=== PATIENT | male | born 1970 | race Caucasian/White ===

== ENCOUNTER 2018-07-31 14:31 | Inpatient (IN) | payer OTHER ==
[~2018-07-31] VITALS: Ht 190.5 cm; Wt 248.2 kg
[2018-07-31] MEDS ORDERED: ROSU10TA5 PO (14:56)
[2018-07-31] MEDS ORDERED: DULO1CAP2 PO (14:56)
[2018-07-31] MEDS ORDERED: OLME40TA PO (14:56)
[2018-07-31] MEDS ORDERED: OMEP20CA3 PO (14:56)
[2018-07-31] MEDS ORDERED: LEVO150T7 PO (14:56)
[2018-07-31] MEDS ORDERED: HYDR12.55 PO (14:56)
[2018-07-31] MEDS ORDERED: BYST10TA2 PO (14:56)
[2018-07-31] MEDS ORDERED: DULO1CAP3 PO (14:56)
[2018-07-31] MEDS ORDERED: IPRATROPIUM 0.5MG/ALBUTEROL 2.5MG INH SOL UD 3ML (DUONEB)(J7620) NEB ONE (15:15)
[2018-07-31 15:37] LABS: ABG BASE EXCESS 2.3 (-2.0-2.0); ABG HCO3 27.5 MEQ/L (22.0-26.0); ABG O2 SATURATION 89.1 % (95.0-99.0); ABG PARTIAL PRESSURE CO2 44.6 mmHg (35.0-45.0); ABG PARTIAL PRESSURE O2 56.5 mmHg (75.0-100.0); ABG STANDARD HCO3 26.3 MEQ/L (22.0-26.0); ABG TOTAL CO2 28.9 MEQ/L (22.0-29.0); ABG pH (ARTERIAL) 7.408 UNITS (7.350-7.450)
[2018-07-31 16:04] LABS: BASO % 0.1 % (0.0-1.0); HEMATOCRIT 47.4 % (42.0-52.0); HEMOGLOBIN 14.7 g/dl (13.5-17.5); LYMPH # 0.7 10^3/uL (1.5-4.5); LYMPH % 7.2 % (24.0-44.0); MEAN CORPUSCULAR HEMOGLOBIN 26.3 pg (27.0-33.0); MEAN CORPUSCULAR VOLUME 84.9 fl (80.0-96.0); MONO # 0.7 10^3/uL (0.0-0.8); MONO % 6.6 % (0.0-5.0); NEUTROPHILS # 8.4 10^3/uL (1.8-7.7); NEUTROPHILS % 85.9 % (36.0-66.0); PLATELET COUNT, AUTOMATED 225 10^3/uL (150-450); RED BLOOD COUNT 5.58 10^6/uL (4.30-6.10); WHITE BLOOD COUNT 9.8 10^3/uL (4.0-10.0)
[2018-07-31 16:09] LABS: INFLUENZA A AMPLIFICATION POSITIVE (NEGATIVE); INFLUENZA B AMPLIFICATION NEGATIVE (NEGATIVE)
[2018-07-31] MEDS ORDERED: OSELTAMIVIR PHOSPHATE 75 MG CAP (TAMIFLU) PO ONE (16:30)
[2018-07-31 16:39] LABS: BLOOD UREA NITROGEN 11 MG/DL (7-18); CALCIUM LEVEL 7.9 MG/DL (8.5-10.1); CARBON DIOXIDE LEVEL 32 MEQ/L (21-32); CHLORIDE LEVEL 104 MEQ/L (98-107); CPK CREATINE PHOSPHOKINASE 162 U/L (39-308); CREATININE FOR GFR 1.08 MG/DL (0.70-1.30); GLOMERULAR FILTRATION RATE > 60.0 (>60); GLUCOSE, FASTING 110 MG/DL (70-100); SODIUM LEVEL 142 MEQ/L (136-145); TROPONIN I 0.07 NG/ML (< 0.10)
[2018-07-31] MEDS ORDERED: VITA200015 PO (17:01)
[2018-07-31] MEDS ORDERED: ADVI200T PO (17:01)
[2018-07-31] MEDS ORDERED: VITMTA PO (17:01)
[2018-07-31] MEDS ORDERED: FUROSEMIDE 40 MG/4 ML VIAL (J1940) IV ONE (18:00)
[2018-07-31] MEDS ORDERED: ACETAMINOPHEN TAB 650MG DOSE (2X325MG) PO PRN (18:15)
[2018-07-31] MEDS ORDERED: ONDANSETRON 4MG/2ML VIAL (J2405) IV PRN (18:15)
[2018-07-31] MEDS ORDERED: IPRATROPIUM 0.5MG/ALBUTEROL 2.5MG INH SOL UD 3ML (DUONEB)(J7620) NEB PRN (18:15)
[2018-07-31] MEDS ORDERED: AZITHROMYCIN 250 MG TAB PO ONE (18:30)
[2018-07-31] MEDS: FORMOTEROL FUMARATE 20 MCG/2 ML INHALATION SOLUTION (PERFOROMIST) INH SCH (20:00)
--- NOTE | 2018-07-31 20:49 | HPE ---
DATE OF ADMISSION: 07/31/2018 PRIMARY CARE PROVIDER: Balaji Campbell CHIEF COMPLAINT: Shortness of breath, weakness, and chills. Patient was seen at [facility] and diagnosed with influenza and possible pneumonia. HISTORY OF PRESENT ILLNESS: Mr. Birmingham is a 47-year-old male who presented to the emergency department today from urgent care. He states that he started having symptoms on Sunday around noon. It started with cold chills and then extreme muscle weakness. He also developed sweats and rigors. He found that he was sweating profusely and had mild body aches; he went to bed but was quite restless overnight. He had been hanging out with a friend on Sunday and, on Sunday, got a call that the friend was sick. His started feeling ill as well at that time. This morning, they had decided to go to urgent care and he was diagnosed with influenza. He states that he has been wheezing and having diarrhea as well as a dry cough. He denies any sputum production. He also states that the last couple of days he has had a headache and two episodes of epistaxis. He denies any runny nose, sore throat, or chest pain. He has noted a little bit of leg swelling but also admits that he stopped his Lasix on his own about 3 or 4 weeks ago. He did not get his flu vaccine this year due to having an allergic reaction multiple times years ago. He has never had a pneumonia vaccine. He used to smoke but quit about 10 years ago. His sick contacts are both his and his friend that he was hanging out with. REVIEW OF SYSTEMS: Constitutional: Positive for subjective fevers and chills as well as rigors. Denies any recent trauma or weight changes. HEENT: Denies vision changes, double vision, runny nose, tinnitus, or sore throat. Positive for headache, epistaxis, and sinus pain. Cardiovascular: Denies chest pain or palpitations. Positive for orthopnea and some mild increase in leg swelling. He sleeps with three pillows at night but does not have paroxysmal nocturnal dyspnea. Respiratory: Positive for dry cough and shortness of breath. Denies any sputum production or hemoptysis. Positive for wheezes. Gastrointestinal (GI): Positive for diarrhea, but negative for abdominal pain, difficulty swallowing, nausea, vomiting, constipation, obstipation, hematemesis, hematochezia, melena, or tenesmus. Genitourinary: Denies any hesitancy, nocturia, polyuria, terminal dribbling, incontinence, or dysuria. Musculoskeletal: Positive for extreme weakness, but denies any crepitus, decreased range of motion, or stiffness. Integumentary: Denies any rashes, striae, lesions, or wounds. Neurologic: Denies any changes to sight/smell/hearing/taste, seizures, paresthesias, or numbness. Positive for headache. Psychiatric: Admits to a history of anxiety. Denies depression, paranoia, anhedonia, or episodes of addi. Endocrine: Positive for history of hypothyroidism, obesity. Denies any tremors, visual disturbances, changes to appetite, constipation, or dry skin. Denies polydipsia. Hematologic: Denies any anemia, purpura, petechiae. Lymphatic: Denies any new lumps or bumps anywhere. PAST MEDICAL HISTORY: 1. Anxiety. 2. Hypertension. 3. Hypothyroidism. 4. Gastroesophageal reflux disease (GERD). 5. Hyperlipidemia. HOME MEDICATIONS: - vitamin D 2000 units daily - duloxetine 90 mg by mouth daily - Bystolic 10 mg by mouth daily - hydrochlorothiazide 12.5 mg daily - olmesartan 40 mg by mouth daily - Synthroid 115 mcg by mouth daily - omeprazole 20 mg daily - rosuvastatin 10 mg by mouth daily SURGICAL HISTORY: None. ALLERGIES: PENICILLIN reaction is hives; ASPIRIN side effect is nosebleeds. FAMILY HISTORY: Is positive for diabetes mellitus and heart disease. 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 He lives with his , Jamilah, of 29 years, who can be reached at [phone]. They do not have any kids, but they do have a dog who is a pit bull/[place] Keene mix named Kemi. He is a former smoker. He quit 10 years ago but smoked for 20 years, two packs a day, and has a 40 pack-year smoking history. He is a social drinker and denies any drug use or recent travel. PHYSICAL EXAMINATION: Vitals: Temperature 98.3, pulse 90, respiratory rate 24, blood pressure 210/98, pulse oximetry is 92% on 3 liters of oxygen via nasal cannula. General: Morbidly obese middle-aged male in very mild respiratory distress. He does have conversational dyspnea. HEENT: Mucous membranes are moist. Pupils are equal, round, and reactive to light. Head is atraumatic, normocephalic. Patient has his own teeth, and dentition is fair. Neck: Supple, nontender. No overt masses to palpation. His neck is quite large due to his morbid obesity. Jugular venous distention (JVD) is unable to be assessed. Lungs: Diffuse rhonchi and wheezes in all lung carney. Patient has decent inspiratory effort. There is no appreciable dullness to percussion nor E to A egophony noted. Heart: Heart sounds are very difficult to hear underneath the patient's rhonchi and wheezes, as well as due to his body habitus. I can appreciate regular rate and rhythm. I am unable to appreciate any murmurs, gallops, or rubs. Patient's radial pulse is regular. Abdomen: Morbidly obese. Body habitus makes organomegaly very difficult to assess. He has normoactive bowel sounds and is nontender to palpation in all four quadrants. Extremities: Mild edema in the bilateral lower extremities that is nonpitting. Pulses are equal and brisk bilaterally. Back: No costovertebral angle (CVA) tenderness bilaterally. Skin: Diffusely sweaty; no rashes or lesions are noted. Neurologic: Patient is awake, alert, and oriented times three. Extraocular eye movements are intact. Cranial nerves II-XII are grossly intact. There are no focal neurological deficits noted. Motor strength is equal bilaterally and 5/5. Sensation is intact throughout. LABORATORY DATA: CBC: WBC 9.8, hemoglobin 14.7, hematocrit 47.4, platelets 225. Chemistry: Sodium 142, potassium 4.0, chloride 104, carbon dioxide 32, anion gap 6, BUN 11, creatinine 1.08, GFR greater than 60, fasting glucose 110, calcium 7.9, total creatinine kinase 162, CK-MB 1.0, troponin 0.07. Serology: Positive for influenza A. Arterial blood gas: pH 7.408, pCO2 of 44.6, pO2 of 56.5, bicarbonate 27.5. EKG: Shows normal sinus rhythm at 98 beats per minute. He has a normal axis and a slight intraventricular conduction delay (IVCD). Chest x-ray done at the [facility]: Airway is straight without deviation. Bony structures seemed to be intact. Cardiac silhouette is enlarged. Diaphragmatic angles are clear without blunting. There is oxygen tubing appreciated. Pulmonary vasculature is normal; however, there are diffuse and fluffy looking interstitial infiltrates that would be consistent in my eye with pulmonary edema. I can also appreciate prominence of the minor fissure. ASSESSMENT: This is a 47-year-old male who is being admitted for hypoxia secondary to influenza. He will be admitted observation under the service of Dr. Infante starting at 0700 hours on 08/01/2018. PLAN: 1. Influenza A positive. Continue patient on Tamiflu. 2. Hypoxia. This can be secondary to influenza. Chest x-ray showed bilateral fluffy infiltrates that would be consistent with pulmonary edema, potentially pneumonia, also decrease penetrance due to body habitus. We will empirically treat with Rocephin and azithromycin for community acquired pneumonia. I have also given him DuoNebs and Perforomist. 3. Dyspnea. Likely multifactorial. He does have influenza, question pneumonia, and question some volume overload. He is on antibiotics, DuoNebs, Perforomist, and I have given him 40 mg of intravenous (IV) Lasix to see if a little bit of diuresis will help out his breathing. We will obtain an echocardiogram to evaluate for congestive heart failure, possible decompensation. 4. Hypertension. Continue home Bystolic, hydrochlorothiazide. We do not stock olmesartan, so I have given him losartan instead. 5. Anxiety. Continue home duloxetine. 6. Hypothyroidism. Continue home Synthroid. 7. Gastroesophageal reflux disease. Continue home omeprazole. 8. Hyperlipidemia. Continue home rosuvastatin. 9. Deep venous thrombosis (DVT) prophylaxis. Thromboembolism deterrents (TEDs), sequentials, and heparin subcutaneous every 8 hours. CODE STATUS: FULL CODE. DISPOSITION: Patient will be on Dr. Anisa Infante's service starting at 0700 hours on 08/01/2018. My faculty preceptor for this patient encounter was physically present during the encounter and was fully available. All aspects of the patient interview, examination, medical decision making process, and medical care plan development were reviewed and approved by the faculty preceptor. The faculty preceptor is aware and concurs with the plan as stated in the body of this note and will attest to such by his/her cosignature. I have both independently examined this patient as well as reviewed the H&P. I have discussed in detail with the resident the findings and plan of treatment as documented in the resident's note. - Haven Villanueva MD MTDD
[2018-07-31] MEDS: HEPARIN SOD (PORCINE) 5000 UNITS/ML VIAL SC SCH (21:29)
[2018-07-31 22:00] VITALS: BP 175/79
[2018-07-31] MEDS: cefTRIAXone SOD 1 GM in D5W MINI-BAG PLUS 50 ML IV SCH (22:12)
[2018-08-01] MEDS: LEVOTHYROXINE 150MCG TABLET (0.15MG) PO SCH (05:29)
[2018-08-01] MEDS: HEPARIN SOD (PORCINE) 5000 UNITS/ML VIAL SC SCH ×3 (05:29→20:59)
[2018-08-01 06:00] VITALS: BP 150/78
[2018-08-01 07:07] LABS: HEMATOCRIT 46.1 % (42.0-52.0); HEMOGLOBIN 14.5 g/dl (13.5-17.5); MEAN CORPUSCULAR HGB CONC 31.5 g/dl (32.0-36.5); MEAN CORPUSCULAR VOLUME 82.6 fl (80.0-96.0); PLATELET COUNT, AUTOMATED 247 10^3/uL (150-450); RED BLOOD COUNT 5.58 10^6/uL (4.30-6.10); WHITE BLOOD COUNT 5.9 10^3/uL (4.0-10.0)
[2018-08-01 07:30] LABS: BLOOD UREA NITROGEN 13 MG/DL (7-18); CALCIUM LEVEL 8.4 MG/DL (8.5-10.1); CARBON DIOXIDE LEVEL 31 MEQ/L (21-32); CHLORIDE LEVEL 104 MEQ/L (98-107); CREATININE FOR GFR 0.99 MG/DL (0.70-1.30); GLOMERULAR FILTRATION RATE > 60.0 (>60); GLUCOSE, FASTING 185 MG/DL (70-100); NT-PRO BNP 676 PG/ML (<125); POTASSIUM SERUM 3.9 MEQ/L (3.5-5.1); SODIUM LEVEL 140 MEQ/L (136-145); TROPONIN I 0.08 NG/ML (< 0.10)
--- NOTE | 2018-08-01 08:01 | ECGEPIP ---
Stationary ECG Study [facility] - ED Test Date: 2018-07-31 Pat Name: TRACY MAKI Department: Room: [place] [address] Gender: M Skin Diver: ROSIE : 1970 Requested By: ALEXANDER Pham Order Number: [id number] Reading MD: Ruben Lala Measurements Intervals [place] Rate: 87 P: 40 SD: 185 QRS: 95 QRSD: 131 T: 28 QT: 345 QTc: 417 Interpretive Statements SINUS RHYTHM BORDERLINE RIGHT AXIS DEVIATION INTRAVENTRICULAR CONDUCTION DELAY ANTEROSEPTAL MYOCARDIAL INFARCTION, OF INDETERMINATE AGE NO PRIORS FOR COMPARISON Electronically Signed On 08-01-2018 8:01:20 EST by Ruben Lala
[2018-08-01] MEDS ORDERED: DULoxetine 30 MG CAP (CYMBALTA) PO SCH (09:00)
[2018-08-01] MEDS: FORMOTEROL FUMARATE 20 MCG/2 ML INHALATION SOLUTION (PERFOROMIST) INH SCH ×2 (09:25→20:00)
[2018-08-01] MEDS: MULTIVITAMINS/MINERALS THERAP 1 TAB PO SCH (09:31)
[2018-08-01] MEDS: VITAMIN D 1,000 INTERNATIONAL UNITS TABLET PO SCH (09:31)
[2018-08-01] MEDS: ROSUVASTATIN 10 MG TAB (CRESTOR) PO SCH (09:31)
[2018-08-01] MEDS: OMEPRAZOLE 20 MG CAP PO SCH (09:31)
[2018-08-01] MEDS: LOSARTAN 50 MG TAB PO SCH (09:32)
[2018-08-01] MEDS: hydroCHLOROthiazide 12.5 MG CAPSULE PO SCH (09:33)
[2018-08-01] MEDS: DULoxetine 30 MG CAP (CYMBALTA) PO SCH (09:33)
[2018-08-01] MEDS: BUDESONIDE 0.5 MG/2 ML INHALATION SUSPENSION INH SCH ×2 (09:40→20:00)
[2018-08-01] MEDS: AZITHROMYCIN 250 MG TAB PO SCH (10:23)
[2018-08-01] MEDS: NEBIVOLOL 5 MG TAB (BYSTOLIC) PO SCH (10:24)
[2018-08-01] MEDS: OSELTAMIVIR PHOSPHATE 75 MG CAP (TAMIFLU) PO SCH ×2 (10:24→20:58)
[2018-08-01 14:00] VITALS: BP 163/81
--- NOTE | 2018-08-01 14:20 | IPNPDOC ---
Text Note Date of Service The patient was seen on 08/01/18. NOTE Subjective: Patient is seen and examined at bedside. He states that he feels much better today than he did yesterday. He has no longer feeling very weak. He has not had any fevers overnight. He states that his breathing is much better, though he still does have the occasional wheeze. He denies any nausea, vomiting, diarrhea, or chills. He denies any chest pain. PHYSICAL EXAMINATION: Vitals: The see below General: Morbidly obese middle-aged male in no acute distress HEENT: Mucous membranes are moist. Pupils are equal, round, and reactive to light. Neck: Jugular venous distention (JVD) is unable to be assessed. Lungs: Diffuse rhonchi and wheezes in all lung carney. Patient has decent inspiratory effort. There is no appreciable dullness to percussion nor E to A egophony noted. Heart: Heart sounds are very difficult to hear underneath the patient's rhonchi and wheezes, as well as due to his body habitus. I can appreciate regular rate and rhythm. I am unable to appreciate any murmurs, gallops, or rubs. Patient's radial pulse is regular. Abdomen: Morbidly obese. He has normoactive bowel sounds and is nontender to palpation in all four quadrants. Extremities: No edema is noticed bilaterally in the lower extremities. Pulses are equal bilaterally. Skin: Warm and well-perfused, no diaphoresis noted LABORATORY DATA: Please see below ASSESSMENT: This is a 47-year-old male who is being admitted for hypoxia secondary to influenza A infection, possible pneumonia. PLAN: 1. Influenza A positive. Continue patient on Tamiflu. 2. Hypoxia. This can be secondary to influenza. Chest x-ray showed bilateral fluffy infiltrates that would be consistent with pulmonary edema, potentially pneumonia, also decrease penetrance due to body habitus. We will empirically treat with Rocephin and azithromycin for community acquired pneumonia. I have also given him DuoNebs, Pulmicort, and Perforomist. 3. Dyspnea. Improved. Likely multifactorial. He does have influenza, question pneumonia, and question some volume overload. He is on antibiotics, DuoNebs, Perforomist. Echocardiogram is pending, so we can evaluate for congestive heart failure, possible decompensation. He diuresed well with a one-time dose of 40 of Lasix yesterday. 4. Hypertension. Continue home Bystolic, hydrochlorothiazide. We do not stock olmesartan, he is on losartan instead. 5. Anxiety. Continue home duloxetine. 6. Hypothyroidism. Continue home Synthroid. 7. Gastroesophageal reflux disease. Continue home omeprazole. 8. Hyperlipidemia. Continue home rosuvastatin. 9. Deep venous thrombosis (DVT) prophylaxis. Thromboembolism deterrents (TEDs), sequentials, and heparin subcutaneous every 8 hours. CODE STATUS: FULL CODE. DISPOSITION: Pending oxygenation with ambulation, clinical improvement VS,Fishbone, I+O VS, Fishbone, I+O Laboratory Tests 07/31/18 15:47 Red Blood Count 5.58, Mean Corpuscular Volume 84.9, Mean Corpuscular Hemoglobin 26.3 L, Mean Corpuscular Hemoglobin Concent 31.0 L, Red Cell Distribution Width 14.2, Neutrophils (%) (Auto) 85.9 H, Lymphocytes (%) (Auto) 7.2 L, Monocytes (%) (Auto) 6.6 H, Eosinophils (%) (Auto) 0.0, Basophils (%) (Auto) 0.1, Neutrophils # (Auto) 8.4 H, Lymphocytes # (Auto) 0.7 L, Monocytes # (Auto) 0.7, Eosinophils # (Auto) 0.0, Basophils # (Auto) 0.0, Calcium Level 7.9 L, Total Creatine Kinase 162 08/01/18 06:46 Red Blood Count 5.58, Mean Corpuscular Volume 82.6, Mean Corpuscular Hemoglobin 26.0 L, Mean Corpuscular Hemoglobin Concent 31.5 L, Red Cell Distribution Width 14.0, Calcium Level 8.4 L Vital Signs Date Time Temp Pulse Resp B/P (MAP) Pulse Ox O2 Delivery O2 Flow Rate FiO2 08/01/18 06:00 97.7 69 18 150/78 (102) 94 3.0 07/31/18 15:10 Nasal Cannula I&O- Last 24 Hours up to 6 AM 08/01/18 06:00 Intake Total 540 ml Output Total 1900 ml Balance -1360 ml GME ATTESTATION GME ATTESTATION My faculty preceptor for this patient encounter was physically present during the encounter and was fully available. All aspects of the patient interview, examination, medical decision making process, and medical care plan development were reviewed and approved by the faculty preceptor. The faculty preceptor is aware and concurs with the plan as stated in the body of this note and will attest to such by his/her cosignature. TY CONTRERAS DO Aug 01, 2018 14:20
[2018-08-01] MEDS: cefTRIAXone SOD 1 GM in D5W MINI-BAG PLUS 50 ML IV SCH (18:47)
[2018-08-01 22:00] VITALS: BP 145/75
--- NOTE | 2018-08-01 22:04 | ECHO ---
DATE OF PROCEDURE: 08/01/2018 REFERRING PHYSICIAN: Dr. Anisa Infante INDICATION: Dyspnea. Height 191 cm, weight 248 kg. DIMENSIONS: IVS: 1.1 LV: 5.6 LVPW: 1.1 LA: 4.3 Aorta: 3.4 IVC: 1.4 Mitral E wave velocity: 126 Mitral A wave: 49 E prime septal: 10.8 E prime lateral: 15.4 FINDINGS: The study is of very limited technical quality corresponding to patient's body habitus with weight over 500 pounds. The patient is in sinus rhythm. Left ventricle is on upper limits of normal size. I cannot comment on systolic function based on very limited views. I assume normal or near normal systolic function. Right ventricle was not well seen. Neither atria were well seen. Aortic, mitral and tricuspid valves were very minimally visualized but grossly appear normal. Pulmonic valve was not seen at all. No pericardial effusion is noted. Inferior vena cava is normal size. Aortic root is normal. Aortic arch appears normal. Abdominal aorta was not seen. Doppler interrogation reveals no significant aortic stenosis or insufficiency. Same applies for mitral and tricuspid valves. Mitral inflow pattern and tissue Doppler imaging of mitral annulus revealed normal diastolic function. CONCLUSIONS: 1. Study is of markedly limited technical quality. 2. Left ventricle is on upper limits of normal size, I am unable to reliably estimate systolic function. Probably normal diastolic function. 3. No significant aortic, mitral and tricuspid valvular disease. 4. Suggestive of normal central venous pressure. 5. Unable to estimate pulmonary artery pressure. COMMENT: Subacute bacterial endocarditis (SBE) prophylaxis is not recommended. Very limited echocardiogram corresponding to patient's body habitus. [facility]
[2018-08-02] MEDS: LEVOTHYROXINE 150MCG TABLET (0.15MG) PO SCH (05:28)
[2018-08-02] MEDS: HEPARIN SOD (PORCINE) 5000 UNITS/ML VIAL SC SCH ×3 (05:29→21:21)
[2018-08-02 06:00] VITALS: BP 139/68
[2018-08-02 07:26] LABS: HEMATOCRIT 45.2 % (42.0-52.0); HEMOGLOBIN 14.1 g/dl (13.5-17.5); MEAN CORPUSCULAR HEMOGLOBIN 26.3 pg (27.0-33.0); MEAN CORPUSCULAR HGB CONC 31.2 g/dl (32.0-36.5); MEAN CORPUSCULAR VOLUME 84.2 fl (80.0-96.0); PLATELET COUNT, AUTOMATED 249 10^3/uL (150-450); RED BLOOD COUNT 5.37 10^6/uL (4.30-6.10); WHITE BLOOD COUNT 8.2 10^3/uL (4.0-10.0)
[2018-08-02 07:53] LABS: BLOOD UREA NITROGEN 19 MG/DL (7-18); CALCIUM LEVEL 8.4 MG/DL (8.5-10.1); CARBON DIOXIDE LEVEL 34 MEQ/L (21-32); CHLORIDE LEVEL 105 MEQ/L (98-107); CREATININE FOR GFR 0.97 MG/DL (0.70-1.30); GLOMERULAR FILTRATION RATE > 60.0 (>60); GLUCOSE, FASTING 114 MG/DL (70-100); POTASSIUM SERUM 3.5 MEQ/L (3.5-5.1); SODIUM LEVEL 144 MEQ/L (136-145)
[2018-08-02] MEDS: AZITHROMYCIN 250 MG TAB PO SCH (08:36)
[2018-08-02] MEDS: DULoxetine 30 MG CAP (CYMBALTA) PO SCH (08:39)
[2018-08-02] MEDS: OMEPRAZOLE 20 MG CAP PO SCH (08:39)
[2018-08-02] MEDS: NEBIVOLOL 5 MG TAB (BYSTOLIC) PO SCH (08:39)
[2018-08-02] MEDS: OSELTAMIVIR PHOSPHATE 75 MG CAP (TAMIFLU) PO SCH ×2 (08:39→21:21)
[2018-08-02] MEDS: MULTIVITAMINS/MINERALS THERAP 1 TAB PO SCH (08:40)
[2018-08-02] MEDS: LOSARTAN 50 MG TAB PO SCH (08:40)
[2018-08-02] MEDS: hydroCHLOROthiazide 12.5 MG CAPSULE PO SCH (08:40)
[2018-08-02] MEDS: ROSUVASTATIN 10 MG TAB (CRESTOR) PO SCH (08:40)
[2018-08-02] MEDS: VITAMIN D 1,000 INTERNATIONAL UNITS TABLET PO SCH (08:40)
[2018-08-02] MEDS: FORMOTEROL FUMARATE 20 MCG/2 ML INHALATION SOLUTION (PERFOROMIST) INH SCH ×2 (08:42→20:27)
[2018-08-02] MEDS: BUDESONIDE 0.5 MG/2 ML INHALATION SUSPENSION INH SCH ×2 (08:42→20:27)
--- NOTE | 2018-08-02 11:12 | IPNPDOC ---
Text Note Date of Service The patient was seen on 08/02/18. NOTE Subjective: Patient is seen and examined at bedside. He states that he feels much better today than he did yesterday. He has not had any fevers overnight. He states that his breathing is much better, though he still does have the occasional wheeze. He denies any nausea, vomiting, diarrhea, or chills. He denies any chest pain. He worked with physical therapy yesterday, and required 3 L of oxygen during ambulation. PHYSICAL EXAMINATION: Vitals: The see below General: Morbidly obese middle-aged male in no acute distress HEENT: Mucous membranes are moist. Pupils are equal, round, and reactive to light. Neck: Jugular venous distention (JVD) is unable to be assessed. Lungs: Diffuse inspiratory and expiratory wheezes, with a prolonged expiratory phase. Otherwise clear to auscultation bilaterally, no rhonchi are appreciated Heart: Regular rate and rhythm; no murmurs, gallops, or rubs Abdomen: Morbidly obese. He has normoactive bowel sounds and is nontender to palpation in all four quadrants. Extremities: No edema is noticed bilaterally in the lower extremities. Pulses are equal bilaterally. Skin: Warm and well-perfused, no diaphoresis noted LABORATORY DATA: Please see below ASSESSMENT: This is a 47-year-old male who is being admitted for hypoxia secondary to influenza A infection, possible pneumonia. PLAN: 1. Influenza A positive. Continue patient on Tamiflu. 2. Hypoxia. This can be secondary to influenza. Chest x-ray showed bilateral fluffy infiltrates that would be consistent with pulmonary edema, potentially pneumonia, also decrease penetrance due to body habitus. He continues on Rocephin and azithromycin for community acquired pneumonia. I have also given him DuoNebs, Pulmicort, and Perforomist. We will start him on IV steroids today, Solu-Medrol 60 mg IV every 6 hours, to aid with decreasing inflammation in his lungs. 3. Dyspnea. Improved. Likely multifactorial. He does have influenza, question pneumonia, and question some volume overload. He is on antibiotics, DuoNebs, Perforomist. Echocardiogram showed left ventricle on the upper limits of normal size, systolic function was unable to be reliably estimated. 4. Hypertension. Continue home Bystolic, hydrochlorothiazide. We do not stock olmesartan, he is on losartan instead. 5. Anxiety. Continue home duloxetine. 6. Hypothyroidism. Continue home Synthroid. 7. Gastroesophageal reflux disease. Continue home omeprazole. 8. Hyperlipidemia. Continue home rosuvastatin. 9. Deep venous thrombosis (DVT) prophylaxis. Thromboembolism deterrents (TEDs), sequentials, and heparin subcutaneous every 8 hours. CODE STATUS: FULL CODE. DISPOSITION: Pending clinical improvement VS,Fishbone, I+O VS, Fishbone, I+O Laboratory Tests 08/02/18 07:10 Red Blood Count 5.37, Mean Corpuscular Volume 84.2, Mean Corpuscular Hemoglobin 26.3 L, Mean Corpuscular Hemoglobin Concent 31.2 L, Red Cell Distribution Width 14.2, Calcium Level 8.4 L Vital Signs Date Time Temp Pulse Resp B/P (MAP) Pulse Ox O2 Delivery O2 Flow Rate FiO2 08/02/18 08:40 156/108 08/02/18 08:39 59 08/02/18 08:00 3.0 08/02/18 06:00 97.3 20 97 07/31/18 15:10 Nasal Cannula I&O- Last 24 Hours up to 6 AM 08/02/18 06:00 Intake Total 1560 ml Output Total 1650 ml Balance -90 ml GME ATTESTATION GME ATTESTATION My faculty preceptor for this patient encounter was physically present during the encounter and was fully available. All aspects of the patient interview, examination, medical decision making process, and medical care plan development were reviewed and approved by the faculty preceptor. The faculty preceptor is aware and concurs with the plan as stated in the body of this note and will attest to such by his/her cosignature. TY CONTRERAS DO Aug 02, 2018 11:12
[2018-08-02] MEDS: methylPREDNISolone INJ 125 MG/2 ML VIAL (J2930) IV SCH ×3 (13:02→23:39)
[2018-08-02 14:00] VITALS: BP 156/93
[2018-08-02] MEDS: cefTRIAXone SOD 1 GM in D5W MINI-BAG PLUS 50 ML IV SCH (18:20)
[2018-08-02 20:00] VITALS: BP 163/83
[2018-08-03] MEDS: HEPARIN SOD (PORCINE) 5000 UNITS/ML VIAL SC SCH (05:41)
[2018-08-03] MEDS: methylPREDNISolone INJ 125 MG/2 ML VIAL (J2930) IV SCH (05:41)
[2018-08-03] MEDS: LEVOTHYROXINE 150MCG TABLET (0.15MG) PO SCH (05:41)
[2018-08-03 06:00] VITALS: BP 158/82
[2018-08-03] MEDS: BUDESONIDE 0.5 MG/2 ML INHALATION SUSPENSION INH SCH (07:42)
[2018-08-03] MEDS: FORMOTEROL FUMARATE 20 MCG/2 ML INHALATION SOLUTION (PERFOROMIST) INH SCH (07:42)
[2018-08-03] MEDS ORDERED: OSEL75CA2 PO (07:57)
[2018-08-03] MEDS ORDERED: PRED20TA PO (07:57)
[2018-08-03] MEDS ORDERED: predniSONE 20 MG TAB PO ONE (08:15)
[2018-08-03] MEDS: VITAMIN D 1,000 INTERNATIONAL UNITS TABLET PO SCH (09:05)
[2018-08-03] MEDS: NEBIVOLOL 5 MG TAB (BYSTOLIC) PO SCH (09:05)
[2018-08-03] MEDS: OSELTAMIVIR PHOSPHATE 75 MG CAP (TAMIFLU) PO SCH (09:05)
[2018-08-03] MEDS: DULoxetine 30 MG CAP (CYMBALTA) PO SCH (09:05)
[2018-08-03] MEDS: MULTIVITAMINS/MINERALS THERAP 1 TAB PO SCH (09:05)
[2018-08-03] MEDS: OMEPRAZOLE 20 MG CAP PO SCH (09:05)
[2018-08-03] MEDS: AZITHROMYCIN 250 MG TAB PO SCH (09:05)
[2018-08-03 09:06] VITALS: BP 158/82
[2018-08-03] MEDS: LOSARTAN 50 MG TAB PO SCH (09:06)
[2018-08-03] MEDS: hydroCHLOROthiazide 12.5 MG CAPSULE PO SCH (09:06)
[2018-08-03] MEDS: ROSUVASTATIN 10 MG TAB (CRESTOR) PO SCH (09:06)
--- NOTE | 2018-08-03 13:50 | DSES ---
DATE OF ADMISSION: 07/31/2018 DATE OF DISCHARGE: 08/03/2018 CONSULTANTS: None. PROCEDURES: None. DISCHARGE DIAGNOSES: 1. Influenza A positive. 2. Hypoxia. 3. Dyspnea. 4. Hypertension. HOSPITAL COURSE: This is a 47-year-old male who presented to the emergency department from the urgent care. He had been starting to have symptoms on Sunday afternoon starting with cold chills and extreme muscle weakness and progressing to sweats and rigors. He had been hanging out with a friend Sunday and got called that the friend was sick on Sunday. His started feeling ill at that time as well. When he went to the emergency department, he was found to be positive for influenza A and was subsequently admitted for influenza A and hypoxia, as well as dyspnea. The patient improved with some Tamiflu and steroids. He was also started on antibiotics to cover for community-acquired pneumonia. He worked with physical therapy as well as respiratory therapy in order to ambulate without desaturations. Echocardiogram was performed as there looked to be a little bit of fluid overload on the patient's chest x-ray, which showed the left ventricle in the upper limits of normal size however, systolic function was unable to be reliably estimated. On the morning of 08/03/2018, the patient was feeling significantly better, he was maintaining his O2 saturation during ambulation. He was no longer dyspneic and was deemed safe for discharge. SUBJECTIVE: The patient feels much better this morning. He denies fevers, chills, chest pain, palpitations, nausea, vomiting, diarrhea or constipation. He is no longer as dyspneic as he was. He has scattered mild wheezes that he feels, but is no longer struggling to breathe. He is anxious to go home. OBJECTIVE: VITALS: Temperature 97.7, pulse 65 and regular, respiratory rate 18, blood pressure 158/82, pulse ox is 92% on room air. GENERAL: Morbidly obese male who was very pleasant and cooperative. In no acute distress. HEENT: Mucous membranes are moist. Pupils are equal, round and reactive to light. Neck: Jugular venous distention (JVD) unable to be assessed as the patient's neck is quite large. LUNGS: Very good breath sounds bilaterally with mild expiratory wheezes and a slightly prolonged expiratory phase, otherwise clear to auscultation bilaterally. No rhonchi or rales are appreciated. HEART: Regular rate and rhythm. No murmurs, gallops or rubs. ABDOMEN: Morbidly obese with normoactive bowel sounds, nontender to palpation in all four quadrants. EXTREMITIES: No edema is noted bilaterally in the lower extremities. Pulses are equal bilaterally. Skin: Warm, well-perfused. No diaphoresis or cyanosis noted. LABORATORY DATA: CBC: WBC 8.2 and hemoglobin 14.1, hematocrit 45.2, platelets 249. Chemistry: Sodium 144, potassium 3.5, chloride 105, carbon dioxide 34, anion gap 5, BUN 19, creatinine 0.97, fasting glucose 114, calcium 8.4, BNP was 676. Blood gas done 07/31/2018 showed an arterial pH of 7.408, pCO2 of 44.6, pO2 56.5 and bicarb of 27.5. Serology: Influenza A positive. IMAGING: Chest x-ray done at the [facility] showed that the airway was straight without deviation. Bony structures were intact. Cardiac silhouette was enlarged. Diaphragmatic angles are clear without blunting. There is oxygen tubing appreciated. Pulmonary vasculature is normal however, there were diffuse and fluffy looking interstitial infiltrates consistent with pulmonary edema with prominence of the minor fissure. ECHOCARDIOGRAM: The study was of markedly limited fair technical quality due to the patient's body habitus. Left ventricle was upper limits of normal size but systolic function was unable to reliably be estimated. Probably normal diastolic function. No significant aortic, mitral or tricuspid valvular disease. Normal CVP. Unable to estimate pulmonary artery pressure. ASSESSMENT: This is a 47-year-old male admitted for hypoxia secondary to influenza. PLAN: 1. Influenza A positive: Continue on Tamiflu. 2. Hypoxia secondary to influenza, resolved. The patient completed 3 days of Rocephin and azithromycin. He responded well to DuoNebs and performance as well as IV steroids. He was sent home on a steroid taper. 3. Dyspnea, likely multifactorial: He probably has some degree of obstructive sleep apnea and obesity hypoventilation syndrome that would exacerbated by influenza. His echocardiogram was limited, however, there was some prominence of the minor fissure on chest x-ray suggesting little bit of volume overload. The patient is also morbidly obese. His dyspnea has resolved at the time of discharge. 4. Hypertension: Continue home medications. 5. Anxiety: Continue medications. 6. Hypothyroidism: Continue Synthroid. 7. Gastroesophageal reflux disease (GERD). Continue omeprazole. 8. Hyperlipidemia: Continue home rosuvastatin DISCHARGE MEDICATIONS: - Tamiflu 75 mg by mouth twice a day for 3 days. - prednisone 40 mg by mouth Sunday and 20 mg by mouth Sunday. -cholecalciferol 2000 units by mouth daily - duloxetine 90 mg by mouth daily - hydrochlorothiazide 12.5 mg by mouth daily - ibuprofen 600 mg by mouth four times a day as needed for pain or fever - Synthroid 115 mcg by mouth daily - multivitamin one tablet by mouth daily - Bystolic 10 mg by mouth daily - olmesartan 40 mg by mouth daily - omeprazole 20 mg by mouth daily - rosuvastatin 10 mg by mouth daily DISPOSITION: Stable. Diet: 2 grams sodium. Activity: As tolerated. Followup: With his primary provider within the next 1-2 weeks. Items to follow up on discharge: Morbid obesity: May consider a sleep study to evaluate for obstructive sleep apnea. Greater than 30 minutes was spent on discharge. My faculty preceptor for this patient encounter was physically present during the encounter and was fully available. All aspects of the patient interview, examination, medical decision making process, and medical care plan development were reviewed and approved by the faculty preceptor. The faculty preceptor is aware and concurs with the plan as stated in the body of this note and will attest to such by his/her co-signature. KENDRICK
== END 2018-08-03 10:00 | disposition home or self-care (01) | DRG 194 ==
LOC: M ED 14:31 → M ED INP 17:49 → OBSVTOIN 17:49 → M MS4PR 20:38
PROVIDERS: ADMIT Internal Medicine; ATTEND Internal Medicine
DX: J10.1 Influenza due to other identified influenza virus with other respiratory manifestations (principal); E66.2 Morbid (severe) obesity with alveolar hypoventilation; Z68.44 Body mass index [BMI] 60.0-69.9, adult; F41.9 Anxiety disorder, unspecified; I10 Essential (primary) hypertension; E03.9 Hypothyroidism, unspecified; K21.9 Gastro-esophageal reflux disease without esophagitis; E78.5 Hyperlipidemia, unspecified; Z79.899 Other long term (current) drug therapy; Z88.0 Allergy status to penicillin; Z88.6 Allergy status to analgesic agent; R09.02 Hypoxemia

== ENCOUNTER → 2018-07-31 | Outpatient (CLI) | payer OTHER ==
[~2018-07-31] MED LIST: ADVI200T PO; BYST10TA2 PO; DULO1CAP2 PO; DULO1CAP3 PO; HYDR12.55 PO; LEVO150T7 PO; OLME40TA PO; OMEP20CA3 PO; OSEL75CA2 PO; PRED20TA PO; ROSU10TA5 PO; VITA200015 PO; VITMTA PO
--- NOTE | 2018-07-31 15:23 | REP ---
Chest two views HISTORY: Wheezing Comparison: 05/25/2010 The examination is limited secondary to the patient's body habitus. Patchy density is present in the right upper and lower lobe consistent with an infiltrate. The left lung is clear. The heart is normal in size. The pulmonary vasculature is normal in appearance. The bony structure is intact. IMPRESSION: Limited examination demonstrating a right upper and lower lobe infiltrate. Electronically Signed by Francis Mendosa MD 07/31/2018 01:39 P
== END ==
LOC: M LRY 12:57
PROVIDERS: ATTEND Physician Assistant
DX: R06.2 Wheezing (principal); R91.8 Other nonspecific abnormal finding of lung field

== ENCOUNTER → 2018-08-13 | Outpatient (CLI) | payer OTHER ==
--- NOTE | 2018-08-14 03:40 | REP ---
Clinical: Pneumonia. Technique: PA and lateral. Comparison: 07/31/2018. Findings: Mediastinum and cardiac silhouette are normal / stable. Lung carney demonstrate stable chronic-appearing interstitial changes. Previously noted bilateral infiltrates are significantly improved with possible trace right lower lobe residual atelectasis. No effusion. No pneumothorax. Impression: Significantly improved when compared to prior examination. Minimal residual right basilar atelectasis cannot be excluded. Electronically Signed by Hussain Donaldson MD 08/14/2018 03:31 A
== END ==
LOC: M LRY 09:43
PROVIDERS: ATTEND Physician Assistant
DX: J18.9 Pneumonia, unspecified organism (principal); J96.10 Chronic respiratory failure, unspecified whether with hypoxia or hypercapnia; J96.01 Acute respiratory failure with hypoxia

== ENCOUNTER 2018-11-22 20:32 | Emergency (ER) | payer OTHER ==
[~2018-11-22] VITALS: Ht 190.5 cm; Wt 245.4 kg
[2018-11-22] MEDS ORDERED: CONT1TAB PO (20:42)
--- NOTE | 2018-11-22 21:58 | REPVR ---
EXAM: US Scrotum EXAM DATE/TIME: 11/22/2018 9:38 PM CLINICAL HISTORY: 48 years old, male; Scrotum pain; Additional info: Testicle pain TECHNIQUE: Imaging protocol: Real-time ultrasound of the scrotum and contents with color Doppler and image documentation. COMPARISON: No relevant prior studies available. FINDINGS: Right Testicle: Right testicle is unremarkable measuring 4.4 x 2.9 x 3.3 cm. Left Testicle: Left testis is heterogeneous and located in the left inguinal canal and is smaller in size than the right testis measuring approximately 3.1 x 1.7 x 2.9 cm. Minimal blood flow is seen in the left testis compared to the right. Findings may represent testicular torsion in proper clinical setting. Epididymides: Bilateral epididymides are unremarkable right measuring 5.6 and left measuring 3.6 cm. Scrotum: Mild bilateral hydrocele. IMPRESSION: Right testicle is unremarkable. Mild bilateral hydrocele. Left testis is heterogeneous and located in the left inguinal canal and is smaller in size than the right testis measuring approximately 3.1 x 1.7 x 2.9 cm. Minimal blood flow is seen in the left testis compared to the right. Findings may represent testicular torsion in proper clinical setting. Electronically signed by: Brooke Castillo On 11/22/2018 21:58:26 PM
[2018-11-22 22:48] LABS: BASO # 0.1 10^3/uL (0.0-0.2); BASO % 0.5 % (0.0-1.0); EOS # 0.2 10^3/uL (0.0-0.50); EOS % 1.6 % (0.0-3.0); HEMATOCRIT 42.7 % (42.0-52.0); LYMPH # 2.4 10^3/uL (1.5-4.5); LYMPH % 22.5 % (24.0-44.0); MEAN CORPUSCULAR HEMOGLOBIN 27.1 pg (27.0-33.0); MEAN CORPUSCULAR HGB CONC 32.8 g/dl (32.0-36.5); MEAN CORPUSCULAR VOLUME 82.6 fl (80.0-96.0); MONO # 0.7 10^3/uL (0.0-0.8); MONO % 6.9 % (0.0-5.0); NEUTROPHILS # 7.4 10^3/uL (1.8-7.7); NEUTROPHILS % 68.1 % (36.0-66.0); PLATELET COUNT, AUTOMATED 292 10^3/uL (150-450); RED BLOOD COUNT 5.17 10^6/uL (4.30-6.10); WHITE BLOOD COUNT 10.8 10^3/uL (4.0-10.0)
[2018-11-22 23:08] LABS: BLOOD UREA NITROGEN 12 MG/DL (7-18); CALCIUM LEVEL 8.7 MG/DL (8.5-10.1); CARBON DIOXIDE LEVEL 29 MEQ/L (21-32); CHLORIDE LEVEL 100 MEQ/L (98-107); CREATININE FOR GFR 1.13 MG/DL (0.70-1.30); GLOMERULAR FILTRATION RATE > 60.0 (>60); GLUCOSE, FASTING 92 MG/DL (70-100); POTASSIUM SERUM 3.5 MEQ/L (3.5-5.1); SODIUM LEVEL 136 MEQ/L (136-145)
[2018-11-23] MEDS ORDERED: CIPROFLOXACIN 400 MG in APPROPRIATE DILUENT 1 EA IV ONE (00:15)
[2018-11-23] MEDS ORDERED: CIPR-249 PO (00:30)
[2018-11-23 01:40] VITALS: BP 152/76
--- NOTE | 2018-11-23 09:29 | CR ---
DATE OF CONSULTATION: 11/23/2018 REASON FOR CONSULTATION: Left testicular pain. Benjy Birmingham is a 48-year-old male who presented initially to the [facility] emergency clinic and was subsequently referred to the formal emergency room for evaluation of left testicular pain that was fairly acute in onset. The patient who is fairly sedentary noted the gradual worsening of some left testicular pain, worse when he was in a seated position which warranted a walk in clinic visit. 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 He denies any change in his urinary symptoms specifically he has moderate to severe urinary urgency of years duration with incontinence. He denies any hesitancy. He denies any problem with his stream and he does sense good emptying of the bladder. He does give a history of urinary tract infections in the past having been treated for left epididymitis as well as prostatitis in the past. He denies any history of stones or disease. Denies any prior urologic surgery. Through the emergency room an ultrasound of the scrotum was obtained which revealed a somewhat smaller left testis on the right which at the time of ultrasound was visualized in the left inguinal canal. The patient does say that he has intermittently found the testicle to be higher riding on the left side and this is something that has been going on for years. The report also described a small hydrocele on the left as well as minimal blood flow in the left testis compared to the right though there was clearly blood flow seen. MEDICAL HISTORY: Documented on the chart. PHYSICAL EXAMINATION: He is a fairly well appearing morbidly obese male weighing over 500 pounds. He is sitting up on the edge of the bed in no acute distress. He is fully clothed and does not appear uncomfortable. His abdomen is soft and nontender. Again morbidly obese. There are no palpable masses. There is no evidence of any rebound or guarding. His flank is nontender. His phallus is without any lesions. His testes are distended bilaterally. His left testis which was initially palpable in the upper left hemiscrotum was easily brought down into the dependant portion of the scrotum with the cord palpable without any evidence of torsion. The left epididymis was slightly firm and fairly tender. There were no palpable testicular masses. He did have reflexes bilaterally. The rectal examination was deferred. LABS: Hematocrit 42.7 with a hemoglobin of 14 and a white blood cell count of 10.800, BUN and creatinine 12 over 1.1. Scrotal ultrasound as mentioned earlier revealed decreased flow to the left testicle though flow was definitely present and the left testis appeared significantly smaller than the right. ASSESSMENT: Likely left epididymitis in an atrophic left testis in a morbidly obese male with a history of urinary tract injection. PLAN: Discharge the patient home after giving a dose of intravenous antibiotics on oral antibiotics and antiinflammatories. I have spoken at length with the patient and his about the presentation of testicular torsion which this does not appear to be but I have also instructed them to return to the emergency room if the patient's testicle gets markedly larger or if his pain and overall clinical condition do not respond to the treatment plan outlined. I have also instructed him to contact [facility] urology for a followup appointment at some point in the next few weeks just for routine followup. Thank you very much for this consultation. I will be happy to follow along with you.
--- NOTE | 2018-11-25 12:30 | ED PDOC ---
Post-Departure Follow-Up dr carcamo and josiah valenzuela faxed formal report of scrotal us for fu mgl Negro Dowd MD Nov 25, 2018 12:30
[2018-11-27 00:06] LABS: TESTOSTERONE FREE (DIRECT) 5.4 pg/mL (6.8-21.5)
== END 2018-11-23 01:42 | disposition home or self-care (01) ==
LOC: M ED 20:32
DX: N45.1 Epididymitis (principal); N50.0 Atrophy of testis; N43.3 Hydrocele, unspecified; E66.01 Morbid (severe) obesity due to excess calories; Z68.44 Body mass index [BMI] 60.0-69.9, adult; Z87.440 Personal history of urinary (tract) infections; I10 Essential (primary) hypertension; E78.5 Hyperlipidemia, unspecified; K21.9 Gastro-esophageal reflux disease without esophagitis; Z87.891 Personal history of nicotine dependence; Z88.0 Allergy status to penicillin; Z88.6 Allergy status to analgesic agent; Z79.899 Other long term (current) drug therapy
CPT/HCPCS: 76870; 80048; 81001; 84402; 84403; 85025; 93976; 96374; 99284; J0744

== ENCOUNTER → 2023-04-23 | Outpatient (CLI) | payer OTHER ==
[~2023-04-23] MED LIST changes: +CIPR-249 PO; +CONT1TAB PO; -DULO1CAP2 PO; -DULO1CAP3 PO; +DULO1CAP5 PO; +DULO1CAP6 PO; +OMEP1CAP73 PO; -OMEP20CA3 PO; -ROSU10TA5 PO; +ROSU10TA6 PO
== END ==
LOC: M WUC 11:11
PROVIDERS: ATTEND Physician Assistant
DX: R06.02 Shortness of breath (principal)

== ENCOUNTER → 2024-01-17 | Outpatient (CLI) | payer OTHER ==
[~2024-01-17] MED LIST changes: -ROSU10TA6 PO; +ROSU10TA61 PO
== END ==
LOC: M WUC 15:56
PROVIDERS: ATTEND Allergy & Immunology Allergy
DX: J45.40 Moderate persistent asthma, uncomplicated (principal); I51.7 Cardiomegaly

== ENCOUNTER → 2024-02-16 | Outpatient (REF) | payer OTHER ==
[~2024-02-16] MED LIST changes: -BYST10TA2 PO; +BYST1TAB3 PO
== END ==
LOC: M WUC 18:45
PROVIDERS: ATTEND Registered Nurse
DX: N39.0 Urinary tract infection, site not specified (principal)

== ENCOUNTER → 2024-03-21 | Outpatient (REF) | payer OTHER | LOC: M LAB REF 12:17 | PROVIDERS: ATTEND Physician Assistant | DX: R30.0 Dysuria (principal) ==

== ENCOUNTER 2024-06-27 08:12 | Day surgery (SDC) | payer OTHER ==
[~2024-06-27] VITALS: Ht 190.5 cm; Wt 216.4 kg
[~2024-06-27 08:12] MED LIST changes: +D200CAP3 PO; +FLUT1BLS8 INH; +FLUTISP; +SEMA1PEN4 SQ; +THERTAB52 PO; +VALS1TAB68 PO; +VITA500C24 PO
[2024-06-27] MEDS ORDERED: fentaNYL 100 MCG/2 ML INJECTION As Ordered ONE (11:01)
[2024-06-27] MEDS ORDERED: propofoL 200 MG/20 ML VIAL As Ordered ONE (11:01)
[2024-06-27] MEDS ORDERED: LIDOCAINE 2% 100MG/5ML SDV (FOR ANES.) As Ordered ONE (11:02)
[2024-06-27 12:01] VITALS: TEMP 97.6
[2024-06-27 12:16] VITALS: BP 113/73; O2SAT 94
== END 2024-06-27 12:25 | disposition home or self-care (01) ==
LOC: M OPP 08:12
PROVIDERS: ATTEND Surgery
DX: R19.5 Other fecal abnormalities (principal); D12.5 Benign neoplasm of sigmoid colon; D12.3 Benign neoplasm of transverse colon; D12.0 Benign neoplasm of cecum; K31.7 Polyp of stomach and duodenum; K57.30 Diverticulosis of large intestine without perforation or abscess without bleeding; K30 Functional dyspepsia; I10 Essential (primary) hypertension; E78.00 Pure hypercholesterolemia, unspecified; E03.9 Hypothyroidism, unspecified; J44.89 Other specified chronic obstructive pulmonary disease; Z79.899 Other long term (current) drug therapy; Z79.890 Hormone replacement therapy; Z79.51 Long term (current) use of inhaled steroids; Z79.85 Long-term (current) use of injectable non-insulin antidiabetic drugs; Z87.891 Personal history of nicotine dependence; Z88.0 Allergy status to penicillin; Z88.6 Allergy status to analgesic agent
CPT/HCPCS: 43251; 45385; 88305; J3010